=== PATIENT | male | born 1965 | race Caucasian/White ===

== ENCOUNTER 2020-09-16 15:14 | Emergency (ER) | payer MEDICAID ==
[~2020-09-16] VITALS: Ht 182.9 cm; Wt 80.0 kg
[2020-09-16] MEDS ORDERED: OLAN10TA19 PO (15:24)
[2020-09-16] MEDS ORDERED: RISP2TAB85 PO (15:24)
[2020-09-16] MEDS ORDERED: LISI10TA26 PO (15:24)
[2020-09-16] MEDS ORDERED: BUPR-46 PO (15:24)
[2020-09-16] MEDS ORDERED: HYDR12.54 PO (15:24)
[2020-09-16] MEDS ORDERED: DIPH50CA38 PO (15:24)
[2020-09-16] MEDS ORDERED: ONDANSETRON HCL 4MG/2ML INJ IV STA (15:59)
[2020-09-16] MEDS ORDERED: KETOROLAC 30MG/ML VIAL IV STA (15:59)
[2020-09-16 16:40] LABS: CLARITY URINE CLEAR (CLEAR); COLOR URINE YELLOW (YELLOW); KETONES URINE NEGATIVE (NEGATIVE); LEUKOCYTE ESTERASE URINE NEGATIVE (NEGATIVE); NITRITE URINE NEGATIVE (NEGATIVE); OCCULT BLOOD URINE NEGATIVE (NEGATIVE); PH URINE 6.5 (4.5-8.0); PROTEIN URINE NEGATIVE (NEGATIVE); SPECIFIC GRAVITY URINE 1.012 (1.005-1.030)
[2020-09-16 19:35] VITALS: BP 116/71
== END 2020-09-16 21:02 | disposition home or self-care (01) ==
LOC: ER 15:14
DX: N50.89 Other specified disorders of the male genital organs (principal); R03.0 Elevated blood-pressure reading, without diagnosis of hypertension; K76.9 Liver disease, unspecified; F20.9 Schizophrenia, unspecified; Z86.19 Personal history of other infectious and parasitic diseases
CPT/HCPCS: 74176; 76870; 81003; 93005; 93976; 96374; 96375; 99285; J1885; J2405; Z7610

== ENCOUNTER 2021-12-20 09:39 | Emergency (ER) | payer MEDICAID ==
[~2021-12-20] VITALS: Ht 182.9 cm; Wt 81.0 kg
[~2021-12-20 09:39] MED LIST: BUPR-46 PO; DIPH50CA38 PO; HYDR12.54 PO; LISI10TA26 PO; OLAN10TA72 PO; RISP2TAB85 PO
[2021-12-20 09:49] VITALS: BP 141/102
[2021-12-20] MEDS ORDERED: ASPIRIN 81MG TABLET PO ONE (10:30)
[2021-12-20] MEDS ORDERED: SODIUM CHLORIDE 0.9% 1,000 ML IV ONE (10:30)
[2021-12-20] MEDS ORDERED: LORAZEPAM 1MG TABLET PO ONE (10:45)
[2021-12-20 10:46] LABS: BASOPHILS % 0.5 % (0.0-2.0); EOSINOPHILS % 1.3 % (0.0-5.0); HEMATOCRIT. 47.9 % (42.0-52.0); HEMOGLOBIN. 16.3 g/dL (14.0-18.0); MEAN CORPUSCULAR HEMOGLOBIN 29.2 pg (28.0-32.0); MEAN CORPUSCULAR VOLUME 85.9 fL (80.0-94.0); MEAN PLATELET VOLUME 8.8 fl (7.4-10.4); MONOCYTES % 12.2 % (2.0-8.0); PLATELET 213 x1000/uL (130-400); RED BLOOD CELL COUNT 5.57 mill/uL (4.7-6.1); RED CELL DISTRIBUTION WIDTH 13.1 % (11.6-14.6)
[2021-12-20 10:55] LABS: CLARITY URINE CLEAR (CLEAR); COLOR URINE YELLOW (YELLOW); KETONES URINE NEGATIVE (NEGATIVE); LEUKOCYTE ESTERASE URINE NEGATIVE (NEGATIVE); NITRITE URINE NEGATIVE (NEGATIVE); OCCULT BLOOD URINE NEGATIVE (NEGATIVE); PROTEIN URINE NEGATIVE (NEGATIVE); SPECIFIC GRAVITY URINE 1.013 (1.005-1.030)
[2021-12-20 10:56] LABS: CHLORIDE 102 mEq/L (98-107)
[2021-12-20 11:05] LABS: ETHANOL BLOOD < 10 mg/dL
[2021-12-20 11:50] LABS: *AMPHETAMINES SCREEN URINE PRESUMTIVE POSITIVE (NEGATIVE); *BARBITURATES SCREEN URINE NEGATIVE (NEGATIVE); *BENZODIAZEPINES SCREEN URINE NEGATIVE (NEGATIVE); *COCAINE SCREEN URINE NEGATIVE (NEGATIVE); CANNABINOID URINE SCREEN PRESUMTIVE POSITIVE (NEGATIVE); METHADONE URINE SCREEN NEGATIVE (NEGATIVE); OPIATES URINE SCREEN NEGATIVE (NEGATIVE); PHENCYCLIDINE URINE SCREEN NEGATIVE (NEGATIVE)
== END 2021-12-20 14:22 | disposition home or self-care (01) ==
LOC: ER 09:46
DX: R00.2 Palpitations (principal); R53.1 Weakness; F17.200 Nicotine dependence, unspecified, uncomplicated; F15.129 Other stimulant abuse with intoxication, unspecified; I10 Essential (primary) hypertension; Z86.59 Personal history of other mental and behavioral disorders
CPT/HCPCS: 36415; 71045; 80053; 80305; 80320; 81003; 82962; 83880; 84484; 85025; 93005; 99285; J7030; G0480

== ENCOUNTER 2022-03-09 20:02 | Emergency (ER) | payer MEDICAID ==
[~2022-03-09] VITALS: Ht 172.7 cm; Wt 64.0 kg
[2022-03-09 20:03] VITALS: BP 134/76
[2022-03-09] MEDS ORDERED: SULFAMETHOXAZOLE/TRIMETHOPRIM 800/160MG TABLET PO ONE (22:00)
[2022-03-09] MEDS ORDERED: KETOROLAC 15MG/ML VIAL IM ONE (22:00)
[2022-03-09] MEDS ORDERED: NAPR500T7 MT (22:27)
[2022-03-09] MEDS ORDERED: CLOT113C TP (22:27)
[2022-03-09] MEDS ORDERED: SULF1TAB48 MT (22:27)
== END 2022-03-09 23:21 | disposition home or self-care (01) ==
LOC: ER 20:02
DX: L03.116 Cellulitis of left lower limb (principal); L03.115 Cellulitis of right lower limb; B35.3 Tinea pedis; I10 Essential (primary) hypertension
CPT/HCPCS: 96372; 99283; J1885

== ENCOUNTER 2022-04-14 11:14 | Emergency (ER) | payer MEDICAID ==
[~2022-04-14] VITALS: Ht 182.9 cm; Wt 79.0 kg
[~2022-04-14 11:14] MED LIST changes: +CLOT113C TP; +NAPR500T7 MT; +SULF1TAB48 MT
[2022-04-14 11:16] VITALS: BP 155/90
[2022-04-14] MEDS ORDERED: HYDR453.3 TP (14:05)
[2022-04-14] MEDS ORDERED: HYDROCORTISONE 2.5% CREAM 20GM TOP SCH ×2 (21:00)
== END 2022-04-14 14:43 | disposition home or self-care (01) ==
LOC: ER 11:14
DX: L29.9 Pruritus, unspecified (principal); F17.200 Nicotine dependence, unspecified, uncomplicated; I10 Essential (primary) hypertension; Z79.899 Other long term (current) drug therapy; Z86.59 Personal history of other mental and behavioral disorders
CPT/HCPCS: 93005; 99283

== ENCOUNTER 2022-04-16 15:09 | Emergency (ER) | payer MEDICAID ==
[~2022-04-16] VITALS: Ht 177.8 cm; Wt 83.0 kg
[~2022-04-16 15:09] MED LIST changes: +HYDR453.3 TP
[2022-04-16 15:11] VITALS: BP 122/90
[2022-04-16] MEDS ORDERED: IBUPROFEN 600MG TABLET PO STA (15:33)
[2022-04-16] MEDS ORDERED: LORAZEPAM 1MG TABLET PO ONE (15:45)
[2022-04-16 16:09] LABS: BASOPHILS % 1.4 % (0.0-2.0); EOSINOPHILS % 1.1 % (0.0-5.0); HEMATOCRIT. 42.2 % (42.0-52.0); HEMOGLOBIN. 14.2 g/dL (14.0-18.0); LYMPHOCYTES % 17.7 % (20.0-50.0); MEAN CORPUSCULAR HEMOGLOBIN 29.3 pg (28.0-32.0); MEAN CORPUSCULAR VOLUME 86.9 fL (80.0-94.0); MEAN PLATELET VOLUME 8.4 fl (7.4-10.4); MONOCYTES % 7.1 % (2.0-8.0); NEUTROPHILS % 72.7 % (40.0-76.0); PLATELET 246 x1000/uL (130-400); RED BLOOD CELL COUNT 4.85 mill/uL (4.7-6.1); RED CELL DISTRIBUTION WIDTH 14.1 % (11.6-14.6)
[2022-04-16 16:20] LABS: CHLORIDE 100 mEq/L (98-107)
[2022-04-16 16:37] LABS: ETHANOL BLOOD < 10 mg/dL
== END 2022-04-16 20:01 | disposition home or self-care (01) ==
LOC: ER 15:09
DX: R07.89 Other chest pain (principal); F41.9 Anxiety disorder, unspecified; I10 Essential (primary) hypertension; F20.9 Schizophrenia, unspecified; Z79.899 Other long term (current) drug therapy
CPT/HCPCS: 36415; 71045; 80053; 80320; 84484; 85025; 93005; 99285; G0480

== ENCOUNTER 2022-04-21 20:16 | Emergency (ER) | payer MEDICAID ==
[~2022-04-21] VITALS: Ht 167.6 cm; Wt 72.0 kg
[2022-04-21 21:11] VITALS: BP 138/70
[2022-04-21] MEDS ORDERED: VISCOUS LIDOCAINE 2% 15 ML UDC PO STA (23:01)
[2022-04-21] MEDS ORDERED: DOXYCYCLINE HYCLATE 100MG CAPSULE PO ONE (23:15)
[2022-04-21] MEDS ORDERED: DIPHENHYDRAMINE 25MG CAPSULE PO ONE (23:15)
[2022-04-21] MEDS ORDERED: CLINDAMYCIN HCL 150MG CAPSULE PO SCH (23:45)
[2022-04-22] MEDS ORDERED: VISCOUS LIDOCAINE 2% 15 ML UDC PO STA (00:23)
[2022-04-22] MEDS ORDERED: CLIN-194 MT (00:27)
[2022-04-22] MEDS ORDERED: B25 MT (00:29)
== END 2022-04-22 00:57 | disposition home or self-care (01) ==
LOC: ER 20:16
DX: L03.311 Cellulitis of abdominal wall (principal); S30.811A Abrasion of abdominal wall, initial encounter; R21 Rash and other nonspecific skin eruption; R46.2 Strange and inexplicable behavior; I10 Essential (primary) hypertension; X58.XXXA Exposure to other specified factors, initial encounter; Y93.89 Activity, other specified; Y92.89 Other specified places as the place of occurrence of the external cause
CPT/HCPCS: 99283; Q0163

== ENCOUNTER 2022-04-27 04:57 | Emergency (ER) | payer MEDICAID ==
[~2022-04-27] VITALS: Ht 172.7 cm; Wt 60.0 kg
[~2022-04-27 04:57] MED LIST changes: +B25 MT; +CLIN-194 MT
[2022-04-27 04:59] VITALS: BP 162/87
[2022-04-27] MEDS ORDERED: ACETAMINOPHEN 325MG TABLET PO ONE (06:30)
[2022-04-27] MEDS ORDERED: TOPUD PO (09:56)
== END 2022-04-27 11:12 | disposition home or self-care (01) ==
LOC: ER 04:57
DX: S08.122A Partial traumatic amputation of left ear, initial encounter (principal); R51.9 Headache, unspecified; M25.512 Pain in left shoulder; W01.10XA Fall on same level from slipping, tripping and stumbling with subsequent striking against unspecified object, initial encounter; Y93.89 Activity, other specified; Y92.89 Other specified places as the place of occurrence of the external cause
CPT/HCPCS: 73030; 99283

== ENCOUNTER 2022-04-28 07:44 | Emergency (ER) | payer MEDICAID ==
[~2022-04-28] VITALS: Ht 172.7 cm; Wt 80.0 kg
[~2022-04-28 07:44] MED LIST changes: +TOPUD PO
[2022-04-28] MEDS ORDERED: TETANUS, DIPHTHERIA, PERTUSSIS VAC/PF 0.5ML (>10YR OLD) IM ONE (08:45)
[2022-04-28] MEDS ORDERED: AMOXICILLIN/POTASSIUM CLAVULANATE 875/125MG TAB PO ONE (08:45)
[2022-04-28] MEDS ORDERED: IBUPROFEN 400MG TABLET PO ONE (09:00)
[2022-04-28] MEDS ORDERED: MORPHINE SULFATE 4 MG/ML CPJ (NOT FOR IM USE) IV STA (09:43)
[2022-04-28] MEDS ORDERED: ONDANSETRON HCL 4MG/2ML INJ IV STA (09:43)
[2022-04-28] MEDS ORDERED: SODIUM CHLORIDE 0.9% 1,000 ML IV ONE (09:45)
[2022-04-28] MEDS ORDERED: LEVETIRACETAM 500MG PREMIX 100 ML IV ONE (10:15)
[2022-04-28 10:21] LABS: BASOPHILS % 0.3 % (0.0-2.0); EOSINOPHILS % 0.1 % (0.0-5.0); HEMATOCRIT. 43.1 % (42.0-52.0); LYMPHOCYTES % 7.5 % (20.0-50.0); MEAN CORPUSCULAR HEMOGLOBIN 30.2 pg (28.0-32.0); MEAN CORPUSCULAR VOLUME 86.8 fL (80.0-94.0); MEAN PLATELET VOLUME 8.4 fl (7.4-10.4); MONOCYTES % 8.7 % (2.0-8.0); NEUTROPHILS % 83.4 % (40.0-76.0); PLATELET 220 x1000/uL (130-400); RED BLOOD CELL COUNT 4.96 mill/uL (4.7-6.1); RED CELL DISTRIBUTION WIDTH 13.9 % (11.6-14.6)
[2022-04-28 10:32] LABS: PARTIAL THROMBOPLASTIN TIME 27.7 sec (23.4-31.0); PROTHROMBIN TIME 10.7 sec (9.6-11.0)
[2022-04-28 10:33] LABS: CHLORIDE 100 mEq/L (98-107)
[2022-04-28 10:39] LABS: ETHANOL BLOOD < 10 mg/dL
[2022-04-28] MEDS ORDERED: LIDOCAINE HCL/EPINEPHRINE 1%-EPI 1:100,000 20 ML VIAL INFIL ONE (10:45)
[2022-04-28] MEDS ORDERED: LIDOCAINE HCL 1% 50ML VIAL (10MG/ML) ONE (10:53)
[2022-04-28] MEDS ORDERED: VANCOMYCIN 1G PREMIX 200 ML IV SCH (12:00)
[2022-04-28] MEDS ORDERED: PIPERACILLIN/TAZ 3.375G PREMIX 50 ML IV ONE (12:00)
[2022-04-29] MEDS ORDERED: AMPICILLIN SOD/SULBACTAM NA 1.5 G in SODIUM CHLORIDE 0.9% 50 ML IV SCH (05:00)
[2022-04-29 13:52] VITALS: BP 118/69
== END 2022-04-29 14:31 | disposition short-term general hospital (02) ==
LOC: ER 07:44 → EDBEDREQ 09:48 → CANBEDREQ 11:13 → ER 04-29 14:31
DX: S02.19XA Other fracture of base of skull, initial encounter for closed fracture (principal); S01.312A Laceration without foreign body of left ear, initial encounter; H91.92 Unspecified hearing loss, left ear; M25.512 Pain in left shoulder; G93.89 Other specified disorders of brain; R00.1 Bradycardia, unspecified; Z20.822 Contact with and (suspected) exposure to COVID-19; W17.89XA Other fall from one level to another, initial encounter; Y93.89 Activity, other specified; Y92.89 Other specified places as the place of occurrence of the external cause
CPT/HCPCS: 36415; 70450; 70486; 71045; 71250; 80053; 80320; 85025; 85610; 85730; 87426; 90715; 93005; 96361; 96365; 96366; 96367; 96375; 99285; C9803; J0295; J1953; J2270; J2405; J2543; J3370; J3490; J7030; Z7610; G0480

== ENCOUNTER 2022-07-31 06:42 | Emergency (ER) | payer MEDICAID ==
[~2022-07-31] VITALS: Ht 180.3 cm; Wt 75.0 kg
[2022-07-31 06:46] VITALS: BP 147/99
== END 2022-07-31 10:22 | disposition left against medical advice (07) ==
LOC: ER 07:00
DX: Z53.21 Procedure and treatment not carried out due to patient leaving prior to being seen by health care provider (principal)